=== PATIENT | female | born 1990 | race Caucasian/White ===

== ENCOUNTER 2016-09-19 21:35 | Emergency (ER) | payer BC ==
[~2016-09-19] VITALS: Ht 170.2 cm; Wt 63.5 kg
[~2016-09-19 21:35] MED LIST: ALBU8.5H3 INH; AZIT250T94 PO; CYCL-319 PO; IBUP-1542 PO; ONDA4TAB35 PO; PRED20TA PO
[2016-09-19 21:50] VITALS: Ht 170.2 cm; Wt 63.5 kg
[2016-09-19] MEDS ORDERED: ONDANSETRON 4 MG INJ IV STA (23:32)
[2016-09-19] MEDS ORDERED: SOD CHLORIDE 0.9% 1,000 ML IV STA (23:32)
[2016-09-20] MEDS ORDERED: ONDA4TAB8 PO (02:08)
[2016-09-20 02:17] VITALS: BP 115/68; PULSE 80; RESP 16
--- NOTE | 2016-09-20 03:43 | ERD ---
ER Documentation Chief Complaint Date/Time DATE: 09/20/16 TIME: 03:42 Chief Complaint vomiting,abd pain,possible food poisoning per pt verbatim HPI Patient is a 26-year-old female who presents to the ED with vomiting, generalized abdominal pain after eating murry and itching a carbon area at a restaurant last night. She states that the baking tasted weird and 2-3 hours after developed vomiting and cramping. She denies fever or chills. Denies headache or dizziness. She states that she has had multiple episodes of nonbilious nonbloody vomiting. Denies diarrhea. Denies other complaints. ROS All systems reviewed and are negative except as per history of present illness. Medications Home Meds Active Scripts Ondansetron Hcl* (Zofran*) 4 Mg Tablet, 4 MG PO Q6H for NAUSEA AND/OR VOMITING, #30 TAB Prov:NICO DICKSON PA-C 09/20/16 Azithromycin* (Zithromax*) 250 Mg Tablet, 250 MG PO .ZPACK DIRECTED, #6 TAB TAKE 500 MG (2 TABS) THE FIRST DAY THEN 250 MG (1 TAB) DAYS 2-5 Prov:MARC WEINER DO 04/05/16 Prednisone* (Prednisone*) 20 Mg Tab, 60 MG PO DAILY for 5 Days, TAB Prov:MARC WEINER DO 04/05/16 Albuterol Sulfate* (Proair HFA*) 8.5 Gm Hfa.aer.ad, 2 PUFF INH Q4, #1 INHALER Prov:MARC WEINER DO 04/05/16 Cyclobenzaprine Hcl* (Cyclobenzaprine Hcl*) 10 Mg Tablet, 10 MG PO TID, #15 TAB Prov:OMID RUIZ PA-C 11/16/15 Ibuprofen* (Motrin*) 600 Mg Tab, 600 MG PO Q6, #30 TAB Prov:OMID RUIZ PA-C 11/16/15 Ondansetron Hcl* (Zofran* ODT) 4 mg -ODT Tab.disper, 4 MG PO Q8 Y for NAUSEA AND /OR VOMITING, #10 TAB Prov:DEAN STEVENSON 07/31/15 Allergies Allergies: Coded Allergies: No Known Allergy (Unverified , 07/31/15) PMhx/Soc Medical and Surgical Hx: pt denies Medical Hx, pt denies Surgical Hx History of Surgery: No Anesthesia Reaction: No Hx Neurological Disorder: No Hx Respiratory Disorders: Yes (Asthma) Hx Cardiac Disorders: No Hx Psychiatric Problems: No Hx Miscellaneous Medical Probl: Yes (history of pericarditis once in past ) Hx Alcohol Use: No Hx Substance Use: No Hx Tobacco Use: No Physical Exam Vitals Vital Signs Date Time Temp Pulse Resp B/P Pulse Ox O2 Delivery O2 Flow Rate FiO2 09/20/16 02:17 80 16 115/68 98 Room Air 09/19/16 21:50 99.6 89 18 126/70 100 Physical Exam GENERAL: Well-developed, well-nourished female. Appears in no acute distress. HEAD: Normocephalic, atraumatic. EYES: Pupils are equally reactive bilaterally. EOMs grossly intact. No conjunctival erythema. ENT: Moist mucous membranes. No uvula deviation. No kissing tonsils. No exudates. NECK: Supple. No lymphadenopathy or thyromegaly. No meningismus. negative kernig. negative brudinski. LUNG: Clear to auscultation bilaterally. No rhonchi, wheezing, rales or coarse breath sounds. HEART: Regular rate and rhythm. No murmurs, rubs or gallops. ABDOMEN: No scars, ecchymosis or rashes noted. Soft, nontender, and nondistended. Positive bowel sounds in all four quadrants. No rebound tenderness , no guarding. (-) McBurneys point tenderness. No CVA tenderness. SKIN: Normal color. Warm and dry. No rashes or lesions. Capillary refill < 2 seconds moist mucous membranes. Results 24 hrs Current Medications Medications (Trade) Dose Ordered Sig/Donnie Route PRN Reason Start Time Stop Time Status Last Admin Dose Admin Sodium Chloride (NS) 1,000 ml @ 1,000 mls/hr Q1H STAT IV 09/19/16 23:32 09/20/16 02:29 DC 09/20/16 00:29 Ondansetron HCl (Zofran Inj) 4 mg ONCE STAT IV 09/19/16 23:32 09/20/16 02:29 DC 09/20/16 00:29 Procedures/MDM ER COURSE: I kept the patient and/or family informed of laboratory and diagnostic imaging results throughout the emergency room course. MEDICATIONS IV fluids, Zofran. Negative test MEDICAL DECISION MAKING: This is a 26-year-old who presents with vomiting 1 day. Vital signs were reviewed. Patient is afebrile. Patient is not hypoxic. Patient has what is likely abdominal pain of viral etiology. She does not have focal tenderness on exam. After IV fluids and Zofran patient is feeling much better and is ready to go home. Low suspicion for ACS, AAA, perforated ulcer, bowel obstruction, cholecystitis, choledocholithiasis, cholangitis, pancreatitis, hepatic abscess, appendicitis, diverticulitis, gastroenteritis, hepatitis, peptic ulcer disease, HELLP syndrome , dehydration, sepsis DISCHARGE: At this time, patient is stable for discharge and outpatient management with no new complaints during the ER course. Patient was sent home with Zofran. Patient will be discharged home with instructions to recheck for new or worsening symptoms such as fever, nausea, weakness, LOC and to follow up with primary care in the next 1-2 days. Patient was advised to return to the ER for any new or worsening symptoms. Plan was discussed and patient and/or family understands and agrees. Home instructions were given. Departure Diagnosis: Primary Impression: Vomiting Vomiting type: unspecified Vomiting Intractability: non-intractable Nausea presence: with nausea Qualified Code: R11.2 - Non-intractable vomiting with nausea, unspecified vomiting type Condition: Stable Patient Instructions: Vomiting (6Y-Adult) Additional Instructions: Call your primary care doctor TOMORROW for an appointment during the next 1-2 days.See the doctor sooner or return here if your condition worsens before your appointment time. NICO DICKSON PA-C Sep 20, 2016 03:43
== END 2016-09-20 02:18 | disposition home or self-care (01) ==
LOC: FTE 21:35
DX: R11.2 Nausea with vomiting, unspecified (principal); J45.909 Unspecified asthma, uncomplicated
CPT/HCPCS: 96374; 99284; J2405; J7030

== ENCOUNTER 2017-01-20 19:00 | Emergency (ER) | payer BC ==
[~2017-01-20] VITALS: Ht 162.6 cm; Wt 63.5 kg
[~2017-01-20 19:00] MED LIST changes: +ONDA4TAB8 PO
[2017-01-20 19:03] VITALS: Ht 162.6 cm; Wt 63.5 kg
--- NOTE | 2017-01-20 19:36 | ERD ---
ER Documentation Chief Complaint Date/Time DATE: 01/20/17 TIME: 19:35 Chief Complaint pelvic pain x 1 week HPI 26-year-old female comes in with bilateral pelvic pain on and off for the past 2 months, worse on the left side 1 day. She states that she has had bilateral "ovarian pain", she has had this for 2 months now and has been intermittent. She started her period today and now complains of worsening pain on the left side, sharp, localized, moderate pain, improving with Tylenol. She states that she has had light to moderate bleeding, no history of heavy bleeding. She is a 1, she had a normal full-term vaginal delivery 2 months ago. There is no associated fevers, chills, dizziness or shortness of breath. ROS All systems reviewed and are negative except as per history of present illness. Medications Home Meds Active Scripts Ibuprofen* (Motrin*) 600 Mg Tab, 600 MG PO Q6, #30 TAB Prov:SIGRID FAULKNER PA-C 01/20/17 Ondansetron Hcl* (Zofran*) 4 Mg Tablet, 4 MG PO Q6H for NAUSEA AND/OR VOMITING, #30 TAB Prov:INCO DICKSON PA-C 09/20/16 Azithromycin* (Zithromax*) 250 Mg Tablet, 250 MG PO .ZPACK DIRECTED, #6 TAB TAKE 500 MG (2 TABS) THE FIRST DAY THEN 250 MG (1 TAB) DAYS 2-5 Prov:MARC WEINER DO 04/05/16 Prednisone* (Prednisone*) 20 Mg Tab, 60 MG PO DAILY for 5 Days, TAB Prov:MARC WEINER DO 04/05/16 Albuterol Sulfate* (Proair HFA*) 8.5 Gm Hfa.aer.ad, 2 PUFF INH Q4, #1 INHALER Prov:MARC WEINER DO 04/05/16 Cyclobenzaprine Hcl* (Cyclobenzaprine Hcl*) 10 Mg Tablet, 10 MG PO TID, #15 TAB Prov:OMID RUIZ PA-C 11/16/15 Ibuprofen* (Motrin*) 600 Mg Tab, 600 MG PO Q6, #30 TAB Prov:OMID RUIZ PA-C 11/16/15 Ondansetron Hcl* (Zofran* ODT) 4 mg -ODT Tab.disper, 4 MG PO Q8 Y for NAUSEA AND /OR VOMITING, #10 TAB Prov:DEAN STEVENSON 07/31/15 Allergies Allergies: Coded Allergies: No Known Allergy (Unverified , 07/31/15) PMhx/Soc History of Surgery: No Anesthesia Reaction: No Hx Neurological Disorder: No Hx Respiratory Disorders: Yes (Asthma) Hx Cardiac Disorders: No Hx Psychiatric Problems: No Hx Miscellaneous Medical Probl: Yes (history of pericarditis once in past ) Hx Alcohol Use: No Hx Substance Use: No Hx Tobacco Use: No Smoking Status: Never smoker Physical Exam Vitals Vital Signs Date Time Temp Pulse Resp B/P Pulse Ox O2 Delivery O2 Flow Rate FiO2 01/20/17 19:03 99.3 68 20 131/74 100 Physical Exam General: Well-developed, well-nourished. The patient appears in no acute distress. HEENT: Head is normocephalic, atraumatic. No scleral icterus. Neck: Supple. Nontender. Lungs: Clear to auscultation. Normal air movement. Heart: Regular rate and rhythm. S1 and S2 are normal. No murmurs, gallops, or rubs. Abdomen: Soft, tender in the left lower region the pelvic region, no rebound pain, no masses, no McBurney's tenderness nondistended. Bowel sounds are normoactive. Extremities: No clubbing or cyanosis. Normal pulses. Moving extremities x 4. No weakness. Neurologic: Alert and oriented 3. No focal deficits. Skin: Normal turgor. No rash or lesions. Results 24 hrs Laboratory Tests Test 01/20/17 19:30 Urine Color LT. YELLOW Urine Clarity CLEAR Urine pH 6.0 Urine Specific [place] 1.025 Urine Ketones NEGATIVE Urine Nitrite NEGATIVE Urine Bilirubin NEGATIVE Urine Urobilinogen 0.2 E.U./dL Urine Leukocyte Esterase NEGATIVE Urine Microscopic RBC 5-10/HPF Urine Microscopic WBC NONE SEEN/HPF Urine Hemoglobin TRACE Urine Glucose NEGATIVE% Urine Total Protein TRACE Current Medications Medications (Trade) Dose Ordered Sig/Donnie Route PRN Reason Start Time Stop Time Status Last Admin Dose Admin Ibuprofen (Motrin) 600 mg ONCE ONCE PO 01/20/17 20:00 01/20/17 20:01 DC 01/20/17 19:41 DIAGNOSTIC IMAGING REPORT Patient: WALESKA IRVIN : 1990 Age: 26 Sex: F MR #: [id number] DOS: 01/20/17 192 Ordering MD: SIGRID FAULKNER PA-C Location: [facility] Room/Bed: PROCEDURE: US Pelvis. CLINICAL INDICATION: Pelvic pain TECHNIQUE: Multiple sonographic images of the pelvis were obtained utilizing a transabdominal technique. The images were reviewed on a PACS workstation. COMPARISON: None. FINDINGS: The uterus is visualized and measures 7.7 x 4.0 x 6.3 cm. The endometrial echo complex measures 3.8 mm thickness. No uterine masses are identified. The right ovary measures 3.5 x 2.5 x 2.6 cm . The left ovary measures 3.3 x 2.1 x 2.2 cm. Both ovaries demonstrate a normal echogenicity and vascular flow. No adnexal masses or pelvic free fluid are noted. IMPRESSION: Unremarkable pelvic ultrasound. If further characterization of the organs of the pelvis is needed MRI should be considered. RPTAT: AA .Won Nieves MD, Date Time Electronically viewed and signed by .Won Nieves MD, on 01/20/2017 20:04 .P/ CC: SIGRID FAULKNER PA-C Procedures/MDM ED course: Urine was negative. Ibuprofen 600 mg was administered. MDM: 26-year-old female comes in with pelvic pain, patient's differential diagnosis includes dysmenorrhea, menstrual cramps, endometriosis, endometritis, , ovarian torsion, tubo-ovarian abscess, ectopic and among others. Patient has had 2 months of bilateral pelvic pain and worsening on the left with her menstrual cycle. This time her pelvic ultrasound does not show any evidence of mass, there is evidence of blood flow to both ovaries. There are no adnexal masses and patient is not . I do not see any signs of an acute surgical process. She does likely present with dysmenorrhea, and may be reevaluated with [employer] in the next week if symptoms do not improve. Departure Diagnosis: Primary Impression: Acute pain in female pelvis Additional Impression: Dysmenorrhea Condition: Good SIGRID FAULKNER PA-C Jan 20, 2017 19:36
[2017-01-20] MEDS ORDERED: IBUPROFEN 600 MG TAB PO ONE (20:00)
--- NOTE | 2017-01-20 20:04 | RADRPT ---
PROCEDURE: US Pelvis. CLINICAL INDICATION: Pelvic pain TECHNIQUE: Multiple sonographic images of the pelvis were obtained utilizing a transabdominal tech nique. The images were reviewed on a PACS workstation. COMPARISON: None. FINDINGS: The uterus is visualized and measures 7.7 x 4.0 x 6.3 cm. The endometrial echo complex measures 3.8 mm thickness. No uterine masses are identified. The right ovary measures 3.5 x 2.5 x 2.6 cm . The left ovary measures 3.3 x 2.1 x 2.2 cm. Both ov tanvi demonstrate a normal echogenicity and vascular flow. No adnexal masses or pelvic free fluid are noted. IMPRESSION: Unremarkable pelvic ultrasound. If further characterization of the organs of the pelvis is needed MRI should be considered. RPTAT: AA .Won Nieves MD, MD Date Time Electronically viewed and signed by .Won Nieves MD, MD on 01/20/2017 20:04 .P/
[2017-01-20 20:11] LABS: ADD UMIC YES; UR BILIRUBIN (Dip) NEGATIVE (NEGATIVE); UR BLOOD (Dip) TRACE (NEGATIVE); UR CLARITY CLEAR (CLEAR); UR COLOR LT. YELLOW (YELLOW); UR GLUCOSE (Dip) NEGATIVE (NEGATIVE); UR KETONES (Dip) NEGATIVE (NEGATIVE); UR LEUKOCYTE ESTERASE (Dip) NEGATIVE (NEGATIVE); UR NITRITE (Dip) NEGATIVE (NEGATIVE); UR TOTAL PROTEIN (Dip) TRACE (NEGATIVE); UR UROBILINOGEN (Dip) 0.2 E.U./dL (0.1-1.0)
[2017-01-20] MEDS ORDERED: IBUP-1542 PO (20:35)
[2017-01-20 20:48] VITALS: BP 130/76; PULSE 58; RESP 16; TEMP 99.1
== END 2017-01-20 20:49 | disposition home or self-care (01) ==
LOC: FTE 19:00
DX: R10.2 Pelvic and perineal pain (principal); N94.6 Dysmenorrhea, unspecified; J45.909 Unspecified asthma, uncomplicated
CPT/HCPCS: 76856; 81001; Z7610

== ENCOUNTER 2017-05-18 23:14 | Emergency (ER) | payer SELFPAY ==
[~2017-05-18] VITALS: Ht 167.6 cm; Wt 64.0 kg
[2017-05-18 23:31] VITALS: Ht 167.6 cm; Wt 64.0 kg
[2017-05-20] MEDS ORDERED: IBUP-1542 PO (23:51)
[2017-05-20] MEDS ORDERED: BENZ100C70 PO (23:51)
== END 2017-05-19 02:54 | disposition left against medical advice (07) ==
LOC: FTE 23:14
DX: Z53.21 Procedure and treatment not carried out due to patient leaving prior to being seen by health care provider (principal)

== ENCOUNTER 2017-05-20 20:25 | Emergency (ER) | payer BC ==
[~2017-05-20] VITALS: Ht 170.2 cm; Wt 63.0 kg
[2017-05-20 20:28] VITALS: Ht 170.2 cm; Wt 63.0 kg
[2017-05-20] MEDS ORDERED: ACETAMINOPHEN 500 MG TAB PO STA (22:16)
[2017-05-20] MEDS ORDERED: KETOROLAC 60 MG INJ IM STA (22:16)
--- NOTE | 2017-05-20 23:37 | RADRPT ---
PROCEDURE: XR Chest. CLINICAL INDICATION: Cough. TECHNIQUE: Single frontal view of the chest. COMPARISON: 04/05/2016. FINDINGS: The cardiomediastinal silhouette is within normal limits. The lungs are clear. No signs of pleural f luid or pneumothorax are seen. The osseous structures and soft tissues are unremarkable. IMPRESSION: No evidence for active cardiopulmonary disease. RPTAT: [facility] Physician Jean Date Time Electronically viewed and signed by Mikey Jaimes Physician on 05/20/2017 23:37 RS/
[2017-05-20] MEDS ORDERED: IBUP-1542 PO (23:51)
[2017-05-20] MEDS ORDERED: BENZ100C70 PO (23:51)
[2017-05-21] VITALS: BP 123/73; PULSE 89; RESP 19; TEMP 99.4
[2017-05-21] MEDS ORDERED: ALBU8.5H3 INH
--- NOTE | 2017-05-21 | ERD ---
ER Documentation Chief Complaint Date/Time DATE: 05/20/17 TIME: 23:59 Chief Complaint PT reports asthma exacerbation today HPI 19-year-old female patient with past medical history of asthma presents to the ED complaining of a dry cough that started 3 days ago. Reports that she also has a fever, feels that she shivering and sweating. Patient states that she has not taken any cough medication. Denies any chest pain, wheezing, shortness of breath, nausea, vomiting, diarrhea, rashes. Denies any sick contacts. ROS All systems reviewed and are negative except as per history of present illness. Medications Home Meds Active Scripts Albuterol Sulfate* (Proair HFA*) 8.5 Gm Hfa.aer.ad, 2 PUFF INH Q4, #1 INHALER Prov:OMID RUIZ PA-C 05/21/17 Benzonatate* (Tessalon Perle*) 100 Mg Capsule, 100 MG PO Q8H Y for COUGH, #20 CAP Prov:OMID RUIZ PA-C 05/20/17 Ibuprofen* (Motrin*) 600 Mg Tab, 600 MG PO Q6, #30 TAB Prov:OMID RUIZ PA-C 05/20/17 Ibuprofen* (Motrin*) 600 Mg Tab, 600 MG PO Q6, #30 TAB Prov:SIGRID FAULKNER PA-C 01/20/17 Ondansetron Hcl* (Zofran*) 4 Mg Tablet, 4 MG PO Q6H for NAUSEA AND/OR VOMITING, #30 TAB Prov:NICO DICKSON PA-C 09/20/16 Azithromycin* (Zithromax*) 250 Mg Tablet, 250 MG PO .[place] DIRECTED, #6 TAB TAKE 500 MG (2 TABS) THE FIRST DAY THEN 250 MG (1 TAB) DAYS 2-5 Prov:MARC WEINER DO 04/05/16 Prednisone* (Prednisone*) 20 Mg Tab, 60 MG PO DAILY for 5 Days, TAB Prov:ALEX WEINERSTCHANCES AJosh DO 04/05/16 Albuterol Sulfate* (Proair HFA*) 8.5 Gm Hfa.aer.ad, 2 PUFF INH Q4, #1 INHALER Prov:ALEX WEINERSTSEAN AJosh DO 04/05/16 Cyclobenzaprine Hcl* (Cyclobenzaprine Hcl*) 10 Mg Tablet, 10 MG PO TID, #15 TAB Prov:OMID RUIZ Karen BRAGG 11/16/15 Ibuprofen* (Motrin*) 600 Mg Tab, 600 MG PO Q6, #30 TAB Prov:OMID RUIZ Karen BRAGG 11/16/15 Ondansetron Hcl* (Zofran* ODT) 4 mg -ODT Tab.disper, 4 MG PO Q8 Y for NAUSEA AND /OR VOMITING, #10 TAB Prov:DEAN STEVENSON. 07/31/15 Allergies Allergies: Coded Allergies: No Known Allergy (Unverified , 05/18/17) PMhx/Soc Medical and Surgical Hx: pt denies Surgical Hx History of Surgery: No Anesthesia Reaction: No Hx Neurological Disorder: No Hx Respiratory Disorders: Yes (Asthma) Hx Cardiac Disorders: No Hx Psychiatric Problems: No Hx Miscellaneous Medical Probl: Yes (history of pericarditis once in past ) Hx Alcohol Use: No Hx Substance Use: No Hx Tobacco Use: No Smoking Status: Never smoker Physical Exam Vitals Vital Signs Date Time Temp Pulse Resp B/P Pulse Ox O2 Delivery O2 Flow Rate FiO2 05/21/17 00:00 99.4 89 19 123/73 97 Room Air 05/20/17 20:28 100.2 92 20 137/80 97 Physical Exam Const: [id number], well-nourished. In no acute distress. Head: Atraumatic, normocephalic Eyes: Normal Conjunctiva without injection. No purulent discharge. PERRL. EOMI ENT: Normal external ear. Ear canal without erythema. Tympanic membrane pearly looney without effusion or bulging. Nasal canal clear with normal turbinates. Moist oropharynx without tonsillar exudates. Non-erythematous pharynx. Uvula midline. No drooling. No trismus. Neck: Full range of motion. No meningismus. No cervical lymphadenopathy. Resp: Clear to auscultation bilaterally. No wheezing, rhonchi, rales, or crackles. No accessory muscle use. No retractions. Cardio: Regular rate and rhythm. No murmurs, rubs or gallops. Abd: Soft, non tender, non distended. Normal bowel sounds. No palpable masses. No rebound tenderness. No guarding. Skin: No petechiae or rashes Back: No midline tenderness. No CVA tenderness. Ext: No cyanosis, or edema. Neur: Awake and alert. Psych: Normal Mood and Affect Results 24 hrs Current Medications Medications (Trade) Dose Ordered Sig/Donnie Route PRN Reason Start Time Stop Time Status Last Admin Dose Admin Acetaminophen (Tylenol Tab) 500 mg ONCE STAT PO 05/20/17 22:16 05/20/17 22:20 DC 05/20/17 22:49 Ketorolac Tromethamine (Toradol) 60 mg ONCE STAT IM 05/20/17 22:16 05/20/17 22:20 DC 05/20/17 22:49 Procedures/MDM This is a 19-year-old female patient with a past medical history of asthma presents to the ED complaining of fever, cough, shivering, chills, sweatiness started 3 days ago. Patient has a low-grade fever of 100.2. Ketorolac, Tylenol , was ordered to further treat patient. Chest x-ray was ordered to further evaluate patient. Chest x-ray was negative for any pneumonia, pleural effusion , pneumothorax. This patient presents to the ED with symptoms consistent with a viral etiology. Patient is afebrile and has normal vital signs. Patient's physical exam include lungs which were clear to auscultation and a normal pulse oximetry. There is a low suspicion for pneumonia, pneumothorax, mononucleosis, pulmonary embolism, epiglottitis, otitis media, otitis externa, viral/strep pharyngitis, sinusitis, peritonsillar abscess, mastoiditis, retropharyngeal abscess, meningitis, sepsis, acute abdomen or other emergent conditions. Fluids , rest, and symptomatic treatment are recommended for the management of patient' s symptoms. Discharge medications: Ibuprofen, Tessalon Perles, Pro-air Patient was instructed to return to the ED for any new or worsening symptoms. They should otherwise follow up with the primary care provider within 1-2 days. The patient's questions were answered at the time of discharge. Patient understood and agreed with discharge management. Departure Diagnosis: Primary Impression: Cough Additional Impressions: Fever Fever type: unspecified Qualified Code: R50.9 - Fever, unspecified fever cause Body aches Condition: Stable Patient Instructions: Influenza (Adult), Viral Syndrome (Adult) Referrals: COMMUNITY CLINICS YOU HAVE RECEIVED A MEDICAL SCREENING EXAM AND THE RESULTS INDICATE THAT YOU DO NOT HAVE A CONDITION THAT REQUIRES URGENT TREATMENT IN THE EMERGENCY DEPARTMENT. FURTHER EVALUATION AND TREATMENT OF YOUR CONDITION CAN WAIT UNTIL YOU ARE SEEN IN YOUR DOCTORS OFFICE WITHIN THE NEXT 1-2 DAYS. IT IS YOUR RESPONSIBILITY TO MAKE AN APPOINTMENT FOR FOLOW-UP CARE. IF YOU HAVE A PRIMARY DOCTOR --you should call your primary doctor and schedule an appointment IF YOU DO NOT HAVE A PRIMARY DOCTOR YOU CAN CALL OUR PHYSICIAN REFERRAL HOTLINE AT IF YOU CAN NOT AFFORD TO SEE A PHYSICIAN YOU CAN CHOSE FROM THE FOLLOWING [facility] [address] [facility] [facility]. [facility] [address] [facility] [address] [facility] [address] [facility] [address] [facility]. [facility] [address] [facility]. [facility] YOU HAVE RECEIVED A MEDICAL SCREENING EXAM AND THE RESULTS INDICATE THAT YOU DO NOT HAVE A CONDITION THAT REQUIRES URGENT TREATMENT IN THE EMERGENCY DEPARTMENT. FURTHER EVALUATION AND TREATMENT OF YOUR CONDITION CAN WAIT UNTIL YOU ARE SEEN IN YOUR DOCTORS OFFICE WITHIN THE NEXT 1-2 DAYS. IT IS YOUR RESPONSIBILITY TO MAKE AN APPOINTMENT FOR FOLOW-UP CARE. IF YOU HAVE A PRIMARY DOCTOR --you should call your primary doctor and schedule and appointment IF YOU DO NOT HAVE A PRIMARY DOCTOR YOU CAN CALL OUR PHYSICIAN REFERRAL HOTLINE AT . IF YOU CAN NOT AFFORD TO SEE A PHYSICIAN YOU CAN CHOSE FROM THE FOLLOWING [facility] INSTITUTIONS: [facility] [address] [place] [address] [facility] [address] [place] [address] [facility] + [facility] [address] [place] [address] [facility] URGENT C[facility]/SPECIALTIES Additional Instructions: Call your primary care doctor TOMORROW for an appointment during the next 2-3 days.See the doctor sooner or return here if your condition worsens before your appointment time. OMID RUIZ PA-C May 21, 2017 00:00
== END 2017-05-21 | disposition home or self-care (01) ==
LOC: FTE 20:25
DX: R05 Cough (principal); R50.9 Fever, unspecified; R52 Pain, unspecified; J45.909 Unspecified asthma, uncomplicated
CPT/HCPCS: 71010; 96374; 99284; J1885; Z7610

== ENCOUNTER 2017-07-09 03:22 | Emergency (ER) | payer BC ==
[~2017-07-09] VITALS: Ht 170.2 cm; Wt 62.6 kg
[~2017-07-09 03:22] MED LIST changes: +BENZ100C70 PO
[2017-07-09 03:28] VITALS: Ht 170.2 cm; Wt 62.6 kg
[2017-07-09] MEDS ORDERED: IBUP-1542 PO (04:11)
--- NOTE | 2017-07-09 04:42 | ERD ---
ER Documentation Chief Complaint Chief Complaint back pain x 4 days, denies injury HPI 27-year-old female complaining of left mid back pain 4 days. She stated the pain is worse with movement. Denies injury. Denies fever or chills. Denies dysuria. ROS All systems reviewed and are negative except as per history of present illness. Medications Home Meds Active Scripts Ibuprofen* (Motrin*) 600 Mg Tab, 600 MG PO Q6H Y for PAIN AND OR ELEVATED TEMP, #30 TAB Prov:DEE GARCIA FLOORWORKER 07/09/17 Albuterol Sulfate* (Proair HFA*) 8.5 Gm Hfa.aer.ad, 2 PUFF INH Q4, #1 INHALER Prov:OMID RUIZ PA-C 05/21/17 Benzonatate* (Tessalon Perle*) 100 Mg Capsule, 100 MG PO Q8H Y for COUGH, #20 CAP Prov:OMID RUIZ PA-C 05/20/17 Ibuprofen* (Motrin*) 600 Mg Tab, 600 MG PO Q6, #30 TAB Prov:OMID RUIZ PA-C 05/20/17 Ibuprofen* (Motrin*) 600 Mg Tab, 600 MG PO Q6, #30 TAB Prov:SIGRID FAULKNER PA-C 01/20/17 Ondansetron Hcl* (Zofran*) 4 Mg Tablet, 4 MG PO Q6H for NAUSEA AND/OR VOMITING, #30 TAB Prov:NICO DICKSON PA-C 09/20/16 Azithromycin* (Zithromax*) 250 Mg Tablet, 250 MG PO .MARIS DIRECTED, #6 TAB TAKE 500 MG (2 TABS) THE FIRST DAY THEN 250 MG (1 TAB) DAYS 2-5 Prov:MARC WEINER DO 04/05/16 Prednisone* (Prednisone*) 20 Mg Tab, 60 MG PO DAILY for 5 Days, TAB Prov:ALEX WEINERSTOLOS AJosh DO 04/05/16 Albuterol Sulfate* (Proair HFA*) 8.5 Gm Hfa.aer.ad, 2 PUFF INH Q4, #1 INHALER Prov:ALEX WEINERSTCHANCES AJosh DO 04/05/16 Cyclobenzaprine Hcl* (Cyclobenzaprine Hcl*) 10 Mg Tablet, 10 MG PO TID, #15 TAB Prov:OMID RUIZ Karen BRAGG 11/16/15 Ibuprofen* (Motrin*) 600 Mg Tab, 600 MG PO Q6, #30 TAB Prov:OMID RUIZJosh BRAGG 11/16/15 Ondansetron Hcl* (Zofran* ODT) 4 mg -ODT Tab.disper, 4 MG PO Q8 Y for NAUSEA AND /OR VOMITING, #10 TAB Prov:SARAShaneDEAN 07/31/15 Allergies Allergies: Coded Allergies: No Known Allergy (Unverified , 05/18/17) PMhx/Soc Medical and Surgical Hx: pt denies Surgical Hx History of Surgery: No Anesthesia Reaction: No Hx Neurological Disorder: No Hx Respiratory Disorders: Yes (ASTHMA) Hx Cardiac Disorders: No Hx Psychiatric Problems: No Hx Miscellaneous Medical Probl: Yes (ANEMIA) Hx Alcohol Use: No Hx Substance Use: No Hx Tobacco Use: No Smoking Status: Never smoker Physical Exam Vitals Vital Signs Date Time Temp Pulse Resp B/P Pulse Ox O2 Delivery O2 Flow Rate FiO2 07/09/17 03:28 98.0 67 20 122/81 100 Physical Exam General: Well-developed, well-nourished, conscious and coherent, in no distress Skin: Warm and dry without rash, good texture and turgor Head: Normocephalic without evidence of trauma Eyes: Sclera and conjunctivae normal; pupils equal, round, and reactive to light; extraocular movements are intact Chest: Normal AP diameter. Good expansion without retractions. Nontender. Lungs are clear to auscultate bilaterally with good tidal volume Heart: Regular rate and rhythm. No murmur, rub, or gallops heard Back: Muscle spasm and tenderness in the left mid thoracic region is noted. Extremities: Full range of motion. Good strength bilaterally. No clubbing, cyanosis, or edema. Peripheral pulses are intact. Sensation intact Neuro: Alert and oriented 4, GCS 15. Cranial nerves grossly intact. Motor and sensory exams nonfocal. Moves all extremities. Speech clear. Gait normal Procedures/MDM Well-appearing 27-year-old female presented ED with left midthoracic back pain 4 days. Patient noted to have reproducible point tenderness on exam, likely her pain is due to muscle spasm. She does not have any midline spinal tenderness, I doubt spinal fracture, subluxation, disc herniation, spinal epidural abscess, or cauda equina syndrome. Patient appears well, stable for discharge and outpatient management. Medical decision making shared with patient and family. Education provided to patient and family. Patient and family expressed understanding of the plan. Medications on discharge: Ibuprofen. Follow-up: Primary care provider in 2-3 days or return to ED if worse. Disclaimer: Inadvertent spelling and grammatical errors are likely due to EHR/ dictation software use and do not reflect on the overall quality of patient care. Also, please note that the electronic time recorded on this note does not necessarily reflect the actual time of the patient encounter. Departure Diagnosis: Primary Impression: Back spasm Condition: Stable Patient Instructions: Back Sprain/Strain Additional Instructions: Call your primary care doctor TOMORROW for an appointment during the next 2-3 days.See the doctor sooner or return here if your condition worsens before your appointment time. DEE GARCIA NP Jul 09, 2017 04:42
== END 2017-07-09 04:45 | disposition home or self-care (01) ==
LOC: FTE 03:22
DX: M62.830 Muscle spasm of back (principal); J45.909 Unspecified asthma, uncomplicated; R40.2412 Glasgow coma scale score 13-15, at arrival to emergency department
CPT/HCPCS: 99283

== ENCOUNTER 2017-11-18 19:26 | Emergency (ER) | END 2017-11-19 01:23 | disposition home or self-care (01) ==

== ENCOUNTER 2018-06-09 16:28 | Emergency (ER) | END 2018-06-09 18:50 | disposition home or self-care (01) ==

== ENCOUNTER 2018-07-27 16:01 | Emergency (ER) | END 2018-07-27 17:33 | disposition home or self-care (01) ==

== ENCOUNTER 2018-10-22 09:47 | Emergency (ER) | payer BC ==
[~2018-10-22] VITALS: Ht 172.7 cm; Wt 62.0 kg
[~2018-10-22 09:47] MED LIST changes: -ALBU8.5H3 INH; +ALBU8.5H8 INH; +AZIT250T PO; -AZIT250T94 PO; +BENZ-6 PO; -BENZ100C70 PO; +CEPH-443 PO; -CYCL-319 PO; +CYCL10TA7 PO; +D-ME473S2 PO; +FIORICET PO; +FLUT9.9S NASAL; +IBUP1TAB18 PO; +METO10TA92 PO
[2018-10-22 09:50] VITALS: BP 128/62; PULSE 97; RESP 16; Ht 172.7 cm; Wt 62.0 kg
[2018-10-22] MEDS ORDERED: AMOX500C2 PO (10:40)
[2018-10-22] MEDS ORDERED: BENZ-6 PO (10:40)
[2018-10-22] MEDS ORDERED: D-ME473S2 PO (10:40)
[2018-10-22] MEDS ORDERED: ACET500C5 PO (10:40)
--- NOTE | 2018-10-22 10:43 | ERD ---
ER Documentation Chief Complaint Chief Complaint FEVER , COUGH , SORE THROAT , EAR PAIN X 1 DAY HPI Patient is a 28-year-old female with no past medical history presents the ER for concerns of fever, cough, sore throat, right ear pain times 1 day. Patient denies any drooling, trismus or hyperextension of her neck. Patient states her cough is productive in nature. Patient reports tactile fevers. Patient denies any nausea, vomiting, abdominal pain or diarrhea. Patient denies any chest pain or shortness of breath. 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 No recent travel. ROS All systems reviewed and are negative except as per history of present illness. Medications Home Meds Active Scripts Acetaminophen* (Tylophen*) 500 Mg Capsule, 1 CAP PO Q6H PRN for PAIN AND OR ELEVATED TEMP, #20 CAP Prov:OLIVER ALONSO PA-C 10/22/18 Dextromethorphan Hb-Promethazine Hcl* (Promethazine DM* Syrup) 473 Ml Syrup, 5 ML PO Q6 PRN for COUGH, #4 OZ Prov:OLIVER ALONSO PA-C 10/22/18 Benzonatate* (Tessalon Perle*) 100 Mg Capsule, 100 MG PO Q8H PRN for COUGH, #20 CAP Prov:OLIVER ALONSO PA-C 10/22/18 Amoxicillin* (Amoxicillin*) 500 Mg Cap, 500 MG PO BID for 7 Days, CAP Prov:OLIVER ALONSO PA-C 10/22/18 Azithromycin* (Zithromax*) 250 Mg Tablet, 250 MG PO .CourtneyPACK DIRECTED, #6 TAB TAKE 500 MG (2 TABS) THE FIRST DAY THEN 250 MG (1 TAB) DAYS 2-5 Prov:SHAYLA AMARO MD 07/27/18 Dextromethorphan Hb-Promethazine Hcl* (Promethazine DM* Syrup) 473 Ml Syrup, 5 ML PO Q6 PRN for COUGH for 5 Days, ML Prov:SHAYLA AMARO MD 07/27/18 Ibuprofen* (Motrin*) 600 Mg Tab, 600 MG PO Q6, #15 TAB Prov:SHAYLA AMARO MD 07/27/18 Metoclopramide* (Reglan*) 10 Mg Tablet, 10 MG PO Q6 PRN for NAUSEA AND/OR VOMITING, #10 TAB Prov:SAVI REDMOND MD 06/09/18 Acetamin/Butalbital/Caffeine* (Fioricet*) [id number] Tab, 1 TAB PO Q6H PRN for PAIN, #30 TAB Prov:SAVI REDMOND MD 06/09/18 Chlorphen/Pseudoeph/Ibuprofen (Advil Allergy Sinus Caplet) 1 Each Tablet, 1 EACH PO BID for 5 Days, TAB Prov:STERLING,SAMANTA 11/19/17 Fluticasone Propionate (Flonase Allergy Relief) 9.9 Ml [place].susp, 1 SPRAY NASAL DAILY, #1 BOTTLE TO EACH NOSTRIL Prov:STERLING,SAMANTA 11/19/17 Cephalexin* (Keflex*) 500 Mg Capsule, 500 MG PO QID for 10 Days, #40 CAP Prov:STERLING,SAMANTA 11/19/17 Ibuprofen* (Motrin*) 600 Mg Tab, 600 MG PO Q6H PRN for PAIN AND OR ELEVATED TEMP, #30 TAB Prov:DEE GARCIA NP 07/09/17 Albuterol Sulfate* (Proair HFA*) 8.5 Gm Hfa.aer.ad, 2 PUFF INH Q4, #1 INHALER Prov:OMID RUIZ PA-C 05/21/17 Benzonatate* (Tessalon Perle*) 100 Mg Capsule, 100 MG PO Q8H PRN for COUGH, #20 CAP Prov:OMID RUIZ PA-C 05/20/17 Ibuprofen* (Motrin*) 600 Mg Tab, 600 MG PO Q6, #30 TAB Prov:OMID RUIZ PA-C 05/20/17 Ibuprofen* (Motrin*) 600 Mg Tab, 600 MG PO Q6, #30 TAB Prov:SIGRID FAULKNER PA-C 01/20/17 Ondansetron Hcl* (Zofran*) 4 Mg Tablet, 4 MG PO Q6H for NAUSEA AND/OR VOMITING, #30 TAB Prov:NICO DICKSON PA-C 09/20/16 Azithromycin* (Zithromax*) 250 Mg Tablet, 250 MG PO .MARIS DIRECTED, #6 TAB TAKE 500 MG (2 TABS) THE FIRST DAY THEN 250 MG (1 TAB) DAYS 2-5 Prov:MARC WEINER DO 04/05/16 Prednisone* (Prednisone*) 20 Mg Tab, 60 MG PO DAILY for 5 Days, TAB Prov:MARC WEINER DO 04/05/16 Albuterol Sulfate* (Proair HFA*) 8.5 Gm Hfa.aer.ad, 2 PUFF INH Q4, #1 INHALER Prov:MARC WEINER. DO 04/05/16 Cyclobenzaprine Hcl* (Cyclobenzaprine Hcl*) 10 Mg Tablet, 10 MG PO TID, #15 TAB Prov:OMID RUIZ PA-C 11/16/15 Ibuprofen* (Motrin*) 600 Mg Tab, 600 MG PO Q6, #30 TAB Prov:OMID RUIZ PA-C 11/16/15 Ondansetron Hcl* (Zofran* ODT) 4 mg -ODT Tab.disper, 4 MG PO Q8 PRN for NAUSEA AND/OR VOMITING, #10 TAB Prov:DEAN STEVENSON 07/31/15 Allergies Allergies: Coded Allergies: No Known Allergy (Unverified , 07/27/18) PMhx/Soc Medical and Surgical Hx: pt denies Surgical Hx History of Surgery: No Anesthesia Reaction: No Hx Neurological Disorder: No Hx Respiratory Disorders: Yes (ASTHMA) Hx Cardiac Disorders: No Hx Psychiatric Problems: No Hx Miscellaneous Medical Probl: Yes (ANEMIA) Hx Alcohol Use: No Hx Substance Use: No Hx Tobacco Use: No Smoking Status: Never smoker FmHx Family History: No diabetes Physical Exam Vitals Vital Signs Date Temp Pulse Resp B/P (MAP) Pulse Ox O2 O2 Flow FiO2 Time Delivery Rate 10/22/18 98.8 97 16 128/62 99 09:50 (84) Physical Exam GENERAL: Well-developed, well-nourished female. Appears in no acute distress. HEAD: Normocephalic, atraumatic. No deformities or ecchymosis. EYE: Pupils equal, round, and reactive to light. EOMs intact. No conjunctival erythema. No eye discharge. ENT: External ear without any masses or tenderness. Auditory canals clear bilaterally. TM visualized bilaterally, non-erythematous, non-bulging. Nasal mucosa pink with no discharge. Oropharynx is pink without any tonsillar erythema or exudates. No uvula deviation. No kissing tonsils. NECK: Supple. No meningismus. Normal ROM of the neck. LUNG: Clear to auscultation bilaterally. No rhonchi, wheezing, rales or coarse breath sounds. HEART: Regular rate and rhythm. No murmurs, rubs or gallops. EXTREMITES: Equal pulses bilaterally. No peripheral clubbing, cyanosis or edema. No unilateral leg swelling. NEUROLOGIC: Alert and oriented to person, place and time. Moving all four extremities. 5/5 strength in all extremities. Normal speech. Steady gait. SKIN: Normal color. Warm and dry. No rashes or lesions. Procedures/MDM MEDICAL DECISION MAKING: This is a 28-year-old female presents ER for concerns of tactile fevers, cough, right ear pain and sore throat times 1 day. Vital signs were reviewed. Patient was afebrile. Patient was not hypoxic. Physical exam findings are consistent with otitis media. Patient likely also has a viral URI. Low suspicion for pneumonia, meningitis, sinusitis, otitis externa,, strep pharyngitis, epiglottitis or peritonsillar abscess. She was nontoxic, non-ill appearing prior to discharge. PRESCRIPTIONS: Tylenol, Tessalon Perles, promethazine cough syrup, amoxicillin DISCHARGE: At this time, patient is stable for discharge and outpatient management. Supportive therapies such as OTC throat lozenges, salt water gurgles, popsicles and jello discussed. I have instructed the patient to follow-up with his/her primary care physician in 1-2 days. I have instructed the patient to promptly return to the ER for any new or worsening symptoms including increased pain, swelling, fever, nausea, vomiting, weakness or difficulty breathing. The patient and/or family expressed understanding of and agreement with this plan. All questions were answered. Home care instructions were provided. Disclaimer: Inadvertent spelling and grammatical errors are likely due to EHR/dictation software use and do not reflect on the overall quality of patient care. Also, please note that the electronic time recorded on this note does not necessarily reflect the actual time of the patient encounter. Departure Diagnosis: Primary Impression: Otitis media Otitis media type: unspecified Chronicity: acute Qualified Codes: H66.90 - Otitis media, unspecified, unspecified ear Additional Impression: Upper respiratory infection URI type: unspecified URI Qualified Codes: J06.9 - Acute upper respiratory infection, unspecified Condition: Stable Patient Instructions: Otitis Media, Abx Tx [Child] Referrals: [facility] YOU HAVE RECEIVED A MEDICAL SCREENING EXAM AND THE RESULTS INDICATE THAT YOU DO NOT HAVE A CONDITION THAT REQUIRES URGENT TREATMENT IN THE EMERGENCY DEPARTMENT. FURTHER EVALUATION AND TREATMENT OF YOUR CONDITION CAN WAIT UNTIL YOU ARE SEEN IN YOUR DOCTORS OFFICE WITHIN THE NEXT 1-2 DAYS. IT IS YOUR RESPONSIBILITY TO MAKE AN APPOINTMENT FOR FOLOW-UP CARE. IF YOU HAVE A PRIMARY DOCTOR --you should call your primary doctor and schedule an appointment IF YOU DO NOT HAVE A PRIMARY DOCTOR YOU CAN CALL OUR PHYSICIAN REFERRAL HOTLINE AT IF YOU CAN NOT AFFORD TO SEE A PHYSICIAN YOU CAN CHOSE FROM THE FOLLOWING [facility] [address] [facility]. [facility] [address] [facility] [facility] [address] [facility] [facility] [address] [facility]. [facility] [address] [facility]. [address] [facility]. [facility] YOU HAVE RECEIVED A MEDICAL SCREENING EXAM AND THE RESULTS INDICATE THAT YOU DO NOT HAVE A CONDITION THAT REQUIRES URGENT TREATMENT IN THE EMERGENCY DEPARTMENT. FURTHER EVALUATION AND TREATMENT OF YOUR CONDITION CAN WAIT UNTIL YOU ARE SEEN IN YOUR DOCTORS OFFICE WITHIN THE NEXT 1-2 DAYS. IT IS YOUR RESPONSIBILITY TO MAKE AN APPOINTMENT FOR FOLOW-UP CARE. IF YOU HAVE A PRIMARY DOCTOR --you should call your primary doctor and schedule and appointment IF YOU DO NOT HAVE A PRIMARY DOCTOR YOU CAN CALL OUR PHYSICIAN REFERRAL HOTLINE AT . IF YOU CAN NOT AFFORD TO SEE A PHYSICIAN YOU CAN CHOSE FROM THE FOLLOWING [facility] INSTITUTIONS: [facility] [address] [place] [address] [facility] [address] [place] [address] [facility] [address] [place] [address] Additional Instructions: Call your primary care doctor TOMORROW for an appointment during the next 1-2 days.See the doctor sooner or return here if your condition worsens before your appointment time. OLIVER ALONSO PA-C Oct 22, 2018 10:43
== END 2018-10-22 11:15 | disposition home or self-care (01) ==
LOC: FTE 09:47
DX: J06.9 Acute upper respiratory infection, unspecified (principal); H66.91 Otitis media, unspecified, right ear; J45.909 Unspecified asthma, uncomplicated
CPT/HCPCS: 99283

== ENCOUNTER 2018-10-23 13:45 | Emergency (ER) | payer SELFPAY ==
[~2018-10-23] VITALS: Ht 170.2 cm; Wt 62.0 kg
[~2018-10-23 13:45] MED LIST changes: +ACET500C5 PO; +AMOX500C2 PO
[2018-10-23 14:24] VITALS: BP 122/72; PULSE 79; RESP 18; Ht 170.2 cm; Wt 62.0 kg
== END 2018-10-23 16:40 | disposition left against medical advice (07) ==
LOC: FTE 13:45
DX: Z53.21 Procedure and treatment not carried out due to patient leaving prior to being seen by health care provider (principal)